=== PATIENT | male | born 2000 | race Caucasian/White ===

== ENCOUNTER 2024-05-14 19:45 | Emergency (ER) | payer BC, SELFPAY ==
--- NOTE | ~2024-05-14 | CT_ITS ---
History: Paresthesias PROCEDURE: CT head without contrast. COMPARISON: None TECHNIQUE: Axial imaging of the head performed from the skull base to the vertex without IV contrast. Sagittal a nd coronal reformations obtained. DLP: 681 mGy-cm FINDINGS: The ventricles are normal in size, shape and position. There is no mass, mass effect or midline shift. There is no abnormal extra-axial fluid collection or intracranial hemorrhage. Visualized paranasal sinuses are clear. The mastoid air cells are well aerated. No acute displaced fractures within the overlying cranium. Impression: No acute intracranial hemorrhage or suspicious mass effect. Reviewed, dictated and finalized at location A. [employer] SUPERVISOR Impression: No acute intracranial hemorrhage or suspicious mass effect.
--- NOTE | ~2024-05-14 | CT_ITS ---
History: Paresthesias PROCEDURE: CT cervical spine without intravenous contrast. COMPARISON: None TECHNIQUE: Multiple contiguous axial images of the cervical spine were performed without the administration of i ntravenous contrast. DLP: 522 mGy-cm FINDINGS: Straightening and slight reversal of the normal curvature of the cervical spine is identified, likely muscular in origin. No acute fractures are present. The bilateral lung apices are unremarkable. No soft tissue abnormality is present. The airway is unremarkable. Impression: Straightening and slight reversal of the normal curvature of the cervical spine, likely muscular in o rigin. No acute fracture. Reviewed, dictated and finalized at location [facility] Impression: Straightening and slight reversal of the normal curvature of the cervical spine , likely muscular in origin. No acute fracture.
--- NOTE | ~2024-05-14 | XR_ITS ---
HISTORY: Paresthesias COMPARISON: None TECHNIQUE: 4 views of the left elbow were performed. FINDINGS: No acute fracture is identified. No elevation of the anterior or posterior fat pads are identified to suggest a supracondylar fracture . Overlying soft tissues are unremarkable. Bone mineralization is age-appropriate. IMPRESSION: No acute fracture or dislocation, as detailed above. Reviewed, dictated and finalized at location A. UAL ASSISTANT
[2024-05-14 19:47] VITALS: BP 142/84; PULSE 95; RESP 18; TEMP 36.6; O2SAT 99
--- NOTE | 2024-05-14 21:13 | ED_ITS ---
HPI - General Adult General Chief complaint: Unspecified Stated complaint: Numbness/tingling in L arm x 3-4 days Time Seen by Provider: 05/14/24 20:45 Source: patient Mode of arrival: ambulatory Limitations: no limitations History of Present Illness HPI narrative: This is a 23-year-old male that presents to the emergency department for paresthesias in his left arm. Ongoing over the last 3 days. No recent injury or trauma. Reports he feels tingling from his elbow down into his hand. No other focal numbness or weakness. Related Data Allergies Allergy/AdvReac Type Severity Reaction Status Date / Time No Known Allergies Allergy Verified 05/14/24 19:46 Review of Systems Review of Systems: CONSTITUTIONAL: Denies fever EYES: Denies visual changes GASTROINTESTINAL: Denies vomiting MUSCULOSKELETAL: Denies back pain, joint pain, or myalgia. NEUROLOGIC: Denies headache, or weakness. All systems reviewed & are unremarkable except as noted in HPI and below PMFSH Past Medical History Medical History (Updated 05/15/24 @ 00:00 by Deisi Jenkins) History of anxiety Social History Social History (Updated 05/14/24 @ 21:15 by Zora Law PA-C) Substance use: never Exam Narrative: GENERAL: Well-appearing, well-nourished, and in no acute distress. HEAD: Normocephalic, atraumatic. EYES: PERRLA and EOMI. ENT: Nares clear, no rhinorrhea or epistaxis. Mucous membranes moist. Oropharynx without tonsillar hypertrophy exudate or other lesions. Bilateral TMs pearly hrenandez non-bulging NECK: Supple. No adenopathy or masses. CHEST: Clear to auscultation. No respiratory distress. No wheezes rales or rhonchi HEART: Regular rate and rhythm. No murmur heard. Normal peripheral pulses. EXTREMITIES: Normal range of motion. No edema or erythema. Strength equal in toan ateral upper and lower extremities (5/5) SKIN: Warm, dry, no rash. NEURO: No focal deficits. Alert and oriented x3. Cranial nerves 2-12 grossly intact PSYCH: Normal mood and affect Course Course Emergency Course: Patient and family agree with plan of care Vital Signs Vital signs: Vital Signs Temperature 98 F 05/14/24 19:47 Pulse Rate 95 05/14/24 19:47 Respiratory Rate 18 05/14/24 19:47 Blood Pressure 142/84 H 05/14/24 19:47 Pulse Oximetry 99 05/14/24 19:47 Temperature 98 F 05/14/24 19:47 Pulse Rate 95 05/14/24 19:47 Respiratory Rate 18 05/14/24 19:47 Blood Pressure 142/84 H 05/14/24 19:47 Pulse Oximetry 99 05/14/24 19:47 Medical Decision Making MDM Narrative Medical decision making narrative: Patient presents to the emergency department for left arm paresthesias. Ongoing over the last couple of days. No recent injuries or trauma. No focal deficits noted on exam. CBC and metabolic panel without concerning findings. CT scan of the brain and neck are without acute findings. Left elbow x-ray without acute osseous abnormalities. Patient and family agree with plan of care. Instructed to have close follow-up with his primary provider for further evaluation. He was given warnings to return to the ER Vital Signs Vital Signs: Vital Signs Temperature 98 F 05/14/24 19:47 Pulse Rate 95 05/14/24 19:47 Respiratory Rate 18 05/14/24 19:47 Blood Pressure 142/84 H 05/14/24 19:47 Pulse Oximetry 99 05/14/24 19:47 Temperature 98 F 05/14/24 19:47 Pulse Rate 95 05/14/24 19:47 Respiratory Rate 18 05/14/24 19:47 Blood Pressure 142/84 H 05/14/24 19:47 Pulse Oximetry 99 05/14/24 19:47 Lab Data Lab results reviewed: Yes I reviewed the patient's lab results. 05/14/24 21:37 05/14/24 21:37 Labs: Lab Results 05/14/24 Range/Units 21:37 WBC 8.4 (4.5-10.0) K/mm3 RBC 4.94 (4.6-6.20) M/mm3 Hgb 15.2 (14.0-18.0) g/dL Hct 42.2 (42.0-52.0) % MCV 85.4 (80-100) fl MCH 30.8 (26-34) pg MCHC 36.0 (32-36) g/dl RDW 12.1 (11.5-14.5) % Plt Count 241 (150-375) k/mm3 MPV 8.9 (7.4-10.4) fl Immature Gran % (Auto) 0.2 (0-0.5) % Neut % (Auto) 60.3 (45.5-73.1) % Lymph % (Auto) 30.8 (18.3-44.2) % [place] % (Auto) 6.8 (2.6-8.5) % Eos % (Auto) 1.5 (0-4.4) % Baso % (Auto) 0.4 (0.2-1.2) % Lymph # (Auto) 2.60 (0.9-3.2) K/mm3 [place] # (Auto) 0.6 (0.1-0.6) K/mm3 Eos # (Auto) 0.1 (0-0.3) K/mm3 Baso # (Auto) 0.0 (0.0-0.1) K/mm3 Abs Immat Gran (auto) 0.02 (0.00-0.031) K/mm3 Absolute Neuts (auto) 5.1 (1.3-6.7) K/mm3 Absolute Nucleated RBC 0.000 (0.0-0.012) K/mm3 Nucleated RBC % 0.0 (0.0-0.2) % Sodium 140 (137-145) mmol/L Potassium 3.7 (3.4-5.0) mmol/L Chloride 99 (98-107) mmol/L Carbon Dioxide 30 (22-30) mmol/L Anion Gap 11 (4-12) mmol/L BUN 17 (9-20) mg/dL Creatinine 0.80 (0.7-1.3) mg/dL Estim Creat Clear Calc 150 ml/min Estimated GFR > 60 (59 - ) Glucose 91 (65-110) mg/dL Calcium 9.1 (8.4-10.2) mg/dL Magnesium 1.9 (1.6-2.3) mg/dL Total Bilirubin 0.5 (0.2-1.3) mg/dL AST 32 (17-59) U/L ALT 33 (6-50) U/L Alkaline Phosphatase 126 (38-126) U/L Total Protein 8.0 (6.3-8.2) g/dL Albumin 4.7 (3.5-5.1) g/dL Vitamin B12 Pending Folate 13.4 (2.76->20) ng/mL Imaging Data Radiologist's impression: ITS Impressions Head CT 05/14/24 22:36 Impression: No acute intracranial hemorrhage or suspicious mass effect. Cervical Spine CT 05/14/24 22:37 Impression: Straightening and slight reversal of the normal curvature of the cervical spine, likely muscular in origin. No acute fracture. Elbow X-Ray 05/14/24 22:41 IMPRESSION: No acute fracture or dislocation, as detailed above. Critical Care Time Critical Care Time Critical Care Time: No Discharge Plan Discharge Clinical Impression: Paresthesia Patient Disposition: Home, Self-Care Condition: Stable Instructions: Paresthesia (ED) Additional Instructions: Return to the emergency department if you experience fever, chest pain, shortness of breath, abdominal pain with nausea and vomiting, sudden onset weakness, numbness, or any other symptoms that are concerning to you. Follow up with your primary care doctor Follow-up/Referrals: PHYSICIAN NOT ON STAFF,NONSTAFF [Non-Staff] -
[2024-05-14 21:45] LABS: Basophils Percent Auto 0.4 % (0.2-1.2); Eosinophils Absolute Auto 0.1 K/mm3 (0-0.3); Eosinophils Percent Auto 1.5 % (0-4.4); Hematocrit 42.2 % (42.0-52.0); Hemoglobin 15.2 g/dL (14.0-18.0); Immature Granulocyte Absolute 0.02 K/mm3 (0.00-0.031); Immature Granulocyte Percent A 0.2 % (0-0.5); Lymphocytes Percent Auto 30.8 % (18.3-44.2); Mean Corpuscular Hemoglobin 30.8 pg (26-34); Mean Corpuscular Volume 85.4 fl (80-100); Mean Platelet Volume 8.9 fl (7.4-10.4); Monocytes Absolute Auto 0.6 K/mm3 (0.1-0.6); Monocytes Percent Auto 6.8 % (2.6-8.5); Neutrophils Absolute Auto 5.1 K/mm3 (1.3-6.7); Neutrophils Percent Auto 60.3 % (45.5-73.1); Platelet Count Result 241 k/mm3 (150-375); Red Blood Count 4.94 M/mm3 (4.6-6.20); Red Cell Distribution Width 12.1 % (11.5-14.5); White Blood Count 8.4 K/mm3 (4.5-10.0)
[2024-05-14 22:02] LABS: Alanine Aminotransferase 33 U/L (6-50); Albumin Level 4.7 g/dL (3.5-5.1); Alkaline Phosphatase 126 U/L (38-126); Anion Gap 11 mmol/L (4-12); Aspartate Amino Transferase 32 U/L (17-59); Bilirubin,Total 0.5 mg/dL (0.2-1.3); Blood Urea Nitrogen 17 mg/dL (9-20); Calcium 9.1 mg/dL (8.4-10.2); Carbon Dioxide 30 mmol/L (22-30); Chloride 99 mmol/L (98-107); Estimated CRCL calculation 150 ml/min; Estimated Glomerular Filt Rate > 60; Glucose 91 mg/dL (65-110); Magnesium 1.9 mg/dL (1.6-2.3); Potassium 3.7 mmol/L (3.4-5.0); Sodium 140 mmol/L (137-145)
[2024-05-14 23:05] LABS: Folic Acid 13.4 ng/mL (2.76->20)
== END 2024-05-14 23:32 | disposition home or self-care (01) ==
PROVIDERS: Emergency Provider Physician Assistant
DX: R20.2 Paresthesia of skin (principal)
CPT/HCPCS: 36415; 70450; 72125; 73080; 80053; 82607; 82746; 83735; 85025; 99284

== ENCOUNTER 2025-01-23 22:48 | Emergency (ER) | payer BC, SELFPAY ==
--- NOTE | ~2025-01-23 | CT_ITS ---
Non-contrast Head CT History: Head injury COMPARISON: 724 Technique: Axial non-contrast imaging of the brain was performed. Dose reduction technique was used on this scan by utilizing automated exposure control and iterative reconstruction technique. The dose -length product (DLP) was 681.00 mGy-cm. Findings: There is no evidence of intracranial hemorrhage, mass lesion, or acute infarct. Brain par enchyma appears normal. The ventricles and subarachnoid spaces are normal in size. The calvarium ap pears normal. The visualized paranasal sinuses and mastoid air cells are clear. Impression: No significant abnormality seen. Reviewed, dictated and finalized at [facility]. Impression: No significant abnormality seen.
--- OUTSIDE RECORDS SUMMARY | 2025-01-23 22:50 | XMS_ITS | Clinical Summary ---
Author Organization [facility] Address [address] [place] [address] Care Team Providers Care [employer] Wafers Tester Name Role Phone Chauncey Strauss MD Primary Care Provider Source Comments [facility],non-owned Affiliates and Associated Physician Practices is amultiple site organization consisting of ambulatory clinics and hospital sitesin [place], [place], [place] and [place]. This disclosure is being madepursuant to the Care Everywhere program and may not contain all information available regarding this patient. Last updated 18.[employer] [facility] Allergies No known active allergies Medications * This document contains information received from the source organization and may not represent a complete record from that organization. * Be aware that medications may not be up to date on this document. Alwaysverify current medications with the patient. traZODone (Desyrel) 50 MG tabletIndicatio ns:Psychophysio logical insomnia Take 1 (one) tablet by mouth at bedtime 30 tablet 4 Active Additional Information Patient not taking.Reported on 08/13/2024 busPIRone (Buspar) 10 MG tabletIndicatio ns:Generalized anxiety disorder Take 1 (one) tablet by mouth 2 times daily 180 tablet 3 4 Active Active Problems Problem Noted Date Diagnosed Date Lipid screening 02/10/2024 Class 2 obesity due to exces s calories without serious comorbidity with body mass index (BMI) of 36.0 to 36.9 in adult 08/22/2022 Generalized anxiety disorder 09/06/2021 IgA nephropathy 08/04/2021 Overview (08/04/2021): Diagnosis age 13-14, around 2014 Resolved Problems Problem Noted Date Diagnosed Date Resolved Date Sciatica of left side 10/23/20182021 Hamstring tightness of both lower extremities 09/18/19 19 08/04/2021 Left hip pain 09/17/2018 08/04/2021 Quadricep tightness 09/17/2018 08/04/19 22 Hematuria, unspecified 05/12/201508/04 Immunizations Immunization Administration Dates Next Due LEIGH VAZQUEZ PRIMARY 18+YR 09/09/2020 DTaP VACCINE IM (6wk-6yrs) 01/27/2002 HEP B VACCINE 2001 HIB Hep B 01/27/2002 Hep B, Adjuvanted 2001 INFLUENZA VACCINE, CELL CULT URE, QUADR. (FLUCELVAX QUADRIVALENT; 6MO+) (CCIIV4) 03/21/2022 INFLUENZA VACCINE, QUADR. (F LUZONE; FLULAVAL; FLUARIX; AFLURIA QUADRIVALENT; 6MO+), 0.5 ML (IIV4) 09/16/2019 PNEUMOCOCCAL PCV7 CONJ, PEDS 01/27/2002 POLIO IPV 01/27/2002 Family History Medical History Relation Name Comments Diabetes - Type 2 Father Sharan BrayJr. Hypertension Father Sharan BrayJr. Diabetes - Type 2 Maternal Grandmother Avani Hypertension Maternal Grandmother Avani Hypertension Mother Rubina Bray Obesity Mother Rubina Bray Cancer - Lung Paternal Grandmother Relation Name Status Comments Father Sharan BrayJr. Alive Maternal Grandfather Wei Maternal Grandmother Avani Alive Mother Rubina Bray Alive Paternal Grandfather Sharan Bray Paternal Grandmother Sister Chrissy Alive Social History Tobacco Use Types Packs/Day Years Used Date Smoking Tobacco: Never Smokeless Tobacco: Never Tobacco Cessation:Counseling Given: Yes Alcohol Use Standard Drinks/Week Comments Never 0 (1 standard drink = 0.6 oz pur e alcohol) AUDIT-C Answer Date Recorded Q1: How often do you have a drink containing alcohol? Never 05/15/2024 Q2: How many drinks containi ng alcohol do you have on a typical day when you are drinking? Patient does not drink Q3: How often do you have si x or more drinks on one occasion? 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 Gender Identity Not on file Sexual Orientation Not on file Occupation Industry Job Start Date Job End Date Student Not on file Not on file Not on file Last Filed Vital Signs Vital Sign Reading Time Taken Comments Blood Pressure 118/74 08/13/2024 8:06 AM PLASTERER FOREMAN Pulse 81 08/13/2024 8:06 AM PLASTERER FOREMAN Temperature 36.1 C (97 F) 08/13/2024 8:06 AM PLASTERER FOREMAN Respiratory Rate 18 02/13/2023 2:38 PM CDT Oxygen Saturation 96% 08/13/2024 8:06 AM PLASTERER FOREMAN Inhaled Oxygen Concentration - - Weight 103.7 kg (228 lb 9.6 oz) 08/13/2024 8:06 AM PLASTERER FOREMAN Height 172.7 cm (5' 7.99) 08/13/2024 8:06 AM CS T Body Mass Index 34.77 08/13/2024 8:06 AM PLASTERER FOREMAN Plan of Treatment Upcoming Encounters Date Type Department Care Team (Late st Contact Info) Description 02/11/2025 10:00 AM CDT Office Visit [facility] - Internal Medicine [address] [place] [phone] [place] [address] [place] [address] [place] [phone] Health Maintenance Due Date Last Done Comments HEPATITIS B VACCINE (3 of 3 - 3-dose series) 05/25/2002 01/27/2002, 2001, 2001 HIV SCREENING 2016 HPV VACCINE (1 - Male 3-dose series) 2016 MENINGOCOCCAL (Group B) VACCINE SHARED DECISION-MAKING (1 of 2 - Standard) 2017 HEPATITIS C SCREENING 11/18/2019 DTAP/TDAP/TD VACCINES (2 - Tdap) 2020 01/27/2002 COVID-19 VACCINE (2 - season) 2024 09/09/2020 INFLUENZA VACCINE (#1) 2025 03/21/2022, 2019 ZOSTER VACCINE (1 of 2) 11/23/2051 HIB VACCINE Aged Out 01/27/2002 No longer eligi ble based on patient's age to complete this topic PNEUMOCOCCAL VACCINE Aged Out 01/27/2002 No long er eligible based on patient's age to complete this topic DEPRESSION SCREENING Completed 08/13/2024, 08/27/2023, 08/22/2022, Additional history exists MENINGOCOCCAL GROUPS A/C/Y/W VACCINE Aged Out No longer eligible based on patient's age to complete this topic Insurance [facility] Care Teams Semiconductor Wafers Tester Relationship Specialty Start Date End Date Chauncey Strauss MD [address] [place] [phone] PCP - General Internal Medicine 08/04/21
--- OUTSIDE RECORDS SUMMARY | 2025-01-23 22:50 | XMS_ITS | Continuity of Care Document ---
Author Organization [facility] Address [address] [place] [address] [address] [place] [address] Phone Care Team Providers Care Mud Grinder Name Role Phone Muehl ARNOL REEDTCarlos Alberto Unavailable Unavailable Procedures Procedure Date Therapeutic Activities Neuromuscular Re-Ed Therapeutic Exercise Manual Therapy Therapeutic Activities Neuromuscular Re-Ed Therapeutic Exercise Hot or Cold Pack Therapeutic Activities Neuromuscular Re-Ed Therapeutic Exercise Hot or Cold Pack Manual Therapy Therapeutic Activities Neuromuscular Re-Ed Therapeutic Exercise Manual Therapy Hot or Cold Pack Therapeutic Activities Neuromuscular Re-Ed Manual Therapy Therapeutic Exercise Therapeutic Activities Neuromuscular Re-Ed Hot or Cold Pack Manual Therapy Therapeutic Exercise Therapeutic Activities Manual Therapy Neuromuscular Re-Ed Hot or Cold Pack Therapeutic Exercise Neuromuscular Re-Ed Manual Therapy Hot or Cold Pack Therapeutic Exercise Therapeutic Activities Neuromuscular Re-Ed Manual Therapy Hot or Cold Pack Therapeutic Exercise Therapeutic Activities Neuromuscular Re-Ed Hot or Cold Pack PT Re-evaluation Therapeutic Exercise Neuromuscular Re-Ed Manual Therapy Hot or Cold Pack PT Re-evaluation Therapeutic Exercise Therapeutic Activities Neuromuscular Re-Ed Manual Therapy Hot or Cold Pack Therapeutic Exercise Therapeutic Activities Neuromuscular Re-Ed Manual Therapy Therapeutic Exercise Therapeutic Activities Neuromuscular Re-Ed Manual Therapy Therapeutic Exercise Therapeutic Activities Neuromuscular Re-Ed Manual Therapy Hot or Cold Pack Therapeutic Exercise Therapeutic Activities Neuromuscular Re-Ed Manual Therapy Hot or Cold Pack PT Re-evaluation Therapeutic Exercise Therapeutic Activities Neuromuscular Re-Ed Manual Therapy Hot or Cold Pack Therapeutic Exercise Therapeutic Activities Neuromuscular Re-Ed Manual Therapy Hot or Cold Pack Therapeutic Exercise Therapeutic Activities Neuromuscular Re-Ed Manual Therapy Hot or Cold Pack Electrical Stimulation Therapeutic Exercise Therapeutic Activities Neuromuscular Re-Ed Manual Therapy Hot or Cold Pack Therapeutic Exercise Therapeutic Activities Neuromuscular Re-Ed Hot or Cold Pack PT Evaluation Moderate Complexity Therapeutic Exercise Neuromuscular Re-Ed Therapeutic Exercise Therapeutic Activities Neuromuscular Re-Ed Manual Therapy PT Evaluation Moderate Complexity Therapeutic Exercise Neuromuscular Re-Ed Advance Directives Directive Yes / No Effective Date File Name No Information Encounters Encounter Description Practice Location Reason(s) For Visit Diagnoses Date Provider Providers Copied on Encounter [address], [id number], tel:[phone] [facility] No Information Sep-2 9 Muehl Carlos Alberto. [address] [place] [address], [address], [place], [facility], . tel:[phone] Referring Provider: Jenn [address], [place], [address]. tel:[phone], [id number], tel:[phone] [facility] No Information Sep-2 9 Muehl Carlos Alberto. [address] [place] [address], [address], [place], [facility], . tel:[phone] Referring Provider: Jenn [address], [place], [address]. tel:[phone] [facility] [address] [place] [address], [id number], tel:[phone] [facility] No Information Sep- 9 Jonathan Jasso Referring Provider: Jenn [address], [place], [address]. tel:[phone], [id number], tel:[phone] [facility] No Information Sep- 6 9 Muehl Carlos Alberto. [address] [facility], [address], [place], [place], [facility], . tel:[phone] Referring Provider: Dalila Baron [address] , [place], [address]. tel:[phone], [id number], tel:[phone] [facility] No Information Sep-0 9-201 9 Muehl Carlos Alberto. [address] [place] [address], [address], [place], [place], [facility], . tel:[phone] Referring Provider: Dalila Baron, [address] , [place], [address]. tel:[phone], [id number], tel:[phone] [facility] No Information Mar-0 5-201 9 [place] Andrea. . Referring Provider: Олег [address] [place], [address]. tel:[phone], [id number], tel:[phone] [facility] No Information 2 8 9 Muehl Carlos Alberto. [address] [place] [address], [address], [place], [place], [facility], . tel:[phone] Referring Provider: Олег [address] [place], [address]. tel:[phone], [id number], tel:[phone] [facility] No Information 2 9 Muehl Carlos Alberto. [address] [place] [address], [address], [place] [address], . tel:[phone] Referring Provider: Dalila Baron [address] [place], [address]. tel:[phone], [id number], [place] tel:[phone] [facility] No Information 9 [facility] Andrea. . Referring Provider: Jenn [place], [address]. tel:[phone] [facility] [address], [id number], tel:[phone] [facility] No Information 9 Tony Mendez. . Referring Provider: [address] [place], [address]. tel:[phone] [place] [address], [id number], tel:[phone] [facility] No Information 9 Muehl Carlos Alberto. [address] [place] [address], [address], [place], [facility], [place]. tel:[phone] Referring Provider: Jenn [place], [address]. tel:[phone] [facility] [address] [place] [address], [id number], tel:[phone] [facility] No Information 9 Muehl Carlos Alberto. [address] [place] [address], [address], [place], [address], [place]. tel:[phone] Referring Provider: Jenn [place], [address]. tel:[phone] [facility] [address] [place] [address], [id number], [place] tel:[phone] [facility] No Information 9 Muehl Carlos Alberto. [address] [place] [address], [address], [place], [address], [place]. tel:[phone] Referring Provider: [address] [place], [address]. tel:[phone] [facility] [address] [facility] [address], [place], [place], [id number], [place] tel:[phone] [facility] Lumbago with sciatica, left sideStiffness of unspecified joint, not elsewhere classifiedMus quang weakness (generalized) Segmental and somatic dysfunction of lumbar region Dec- 7 9 Muehl Carlos Alberto. [address] [facility], [address], [place], [address], [place]. tel:[phone] Referring Provider: Jenn [place], [address]. tel:[phone] [facility] [address] [facility] [address], [place], [place], [id number], [place] tel:[phone] [facility] Lumbago with sciatica, left sideStiffness of unspecified joint, not elsewhere classifiedMus quang weakness (generalized) Segmental and somatic dysfunction of lumbar region Dec-2 9 Muehl Carlos Alberto. [address] [place] [address], [address], [place], [address], [place]. tel:[phone] Referring Provider: Jenn [place], [address]. tel:[phone] [facility] [address] [place] [address], [place], [place], [id number], [place] tel:[phone] [facility] Lumbago with sciatica, left sideStiffness of unspecified joint, not elsewhere classifiedMus quang weakness (generalized) Segmental and somatic dysfunction of lumbar region Dec-2 0 9 Muehl Carlos Alberto. [address] [facility], [address], [place], [address], [place]. tel:[phone] Referring Provider: Jenn [place], [address]. tel:[phone] [facility] [address] [facility], [place], [place], [id number], [place] tel:[phone] [facility] Lumbago with sciatica, left sideStiffness of unspecified joint, not elsewhere classifiedMus quang weakness (generalized) Segmental and somatic dysfunction of lumbar region 9 Muehl Carlos Alberto. [address] [facility], [address], [place], [facility], [place]. tel:[phone] Referring Provider: Олег [address] [place], [address]. tel:[phone] [facility] [address] [place] [address], [place], [place], [id number], [place] tel:[phone] [facility] Lumbago with sciatica, left sideStiffness of unspecified joint, not elsewhere classifiedMus quang weakness (generalized) Segmental and somatic dysfunction of lumbar region 9 Muehl Carlos Alberto. [address] [place] [address], [address], [place], [address], [place]. tel:[phone] Referring Provider: Олег [address] [place], [address]. tel:[phone] [facility] [address] [facility], [place], [place], [id number], [place] tel:[phone] [facility] Lumbago with sciatica, left sideStiffness of unspecified joint, not elsewhere classifiedMus quang weakness (generalized) Segmental and somatic dysfunction of lumbar region 9 [place] Nicolasa. . Referring Provider: Dalila Baron, [address] [place], [address]. tel:[phone] [facility] [facility], [place], [place], [id number], [place] tel:[phone] [facility] Lumbago with sciatica, left sideStiffness of unspecified joint, not elsewhere classifiedMus quang weakness (generalized) Segmental and somatic dysfunction of lumbar region 9 Muehl Carlos Alberto. [address] [facility], [address], [place], [address], [place]. tel:[phone] Referring Provider: Dalila Baron, [address] , [place], [address]. tel:[phone] [facility] [place] [address], [place], [place], [id number], [place] tel:[phone] [facility] Lumbago with sciatica, left sideStiffness of unspecified joint, not elsewhere classifiedMus quang weakness (generalized) Segmental and somatic dysfunction of lumbar region 9 Muehl Carlos Alberto. [address] [facility], [address], [place], [address], [place]. tel:[phone] Referring Provider: Dalila Baron, [address] , [place], [address]. tel:[phone] [facility] [place] [address], [place], [place], [id number], [place] tel:[phone] [facility] Lumbago with sciatica, left sideStiffness of unspecified joint, not elsewhere classifiedMus quang weakness (generalized) Segmental and somatic dysfunction of lumbar region 9 Muehl Carlos Alberto. [address] [facility], [address], [place], [address], [place]. tel:[phone] Referring Provider: Dalila Baron, [address] [place], [address]. tel:[phone] [facility], [id number], [place] tel:[phone] [facility] Pain in left legPain in left hipLumbago with sciatica, left sideMuscle weakness (generalized) Other specified disorders of muscle 9 Muehl Carlos Alberto. [address] [facility], [address], [place], [address], [place]. tel:[phone] Referring Provider: Franny Garcia, [address] [place] [address], [address]. tel:[phone] [facility] [place] [address], [place], [place], [id number], [place] tel:[phone] [facility] Pain in left legPain in left hipLumbago with sciatica, left sideMuscle weakness (generalized) Other specified disorders of muscle Sep-201 9 Rose Carcamo. [address] [facility], [address], [place], [address], [place]. tel:[phone] Referring Provider: Franny Garcia, [address] [place] [address], [address]. tel:[phone] Family History Family Member Type Diagnosis Age At Onset No Information Payers Payer name Insurance type Covered constitution party ID Authorhugoa gabriela(s) [facility] [id number] Social History Type Description Quantity Date Captured Comments Sex Male Smoking Status No Information Chief Complaint And Reason For Visit No Information Reason For Referral Reason For Referral No Information History Of Present Illness Encounter Date Complaint History Of Prese nt Illness No Information Functional Status Date Functional Assessmen t No Information Instructions Date Instruction Additional Infor mation No Information Assessments Type Assessment Date No Information Patient Care Teams Name Effective Dates (start - stop) Status Members No Information
[2025-01-23 22:51] VITALS: BP 124/90; PULSE 91; RESP 16; TEMP 36.3; O2SAT 98
[2025-01-23 23:39] VITALS: PULSE 95; RESP 24; O2SAT 97
[2025-01-23 23:45] VITALS: PULSE 87; RESP 15; O2SAT 97
--- NOTE | 2025-01-23 23:58 | ED_ITS ---
HPI - Head Injury General Chief complaint: Head Injury <Wes Kingston APRN - Last Filed: 01/24/25 02:06> Stated complaint: hit my head puck to the head <Wes Kingston APRN - Last Filed: 01/24/25 02:06> Time Seen by Provider: 01/23/25 23:47 <Wes Kingston APRN - Last Filed: 01/24/25 02:06> Source: patient, family, EMS and other (Pt has video on phone of incident) <Wes Kingston APRN - Last Filed: 01/24/25 02:06> Mode of arrival: ambulatory <Wes Kingston APRN - Last Filed: 01/24/25 02:06> Limitations: no limitations <Wes Kingston APRN - Last Filed: 01/24/25 02:06> History of Present Illness HPI Narrative: 24 y/o WM in the ED for c/o his head being struck by a hockey puck. Pt states he was playing in a game, hit with a slap shot to the left head and went to the ground. Pt denies LOC, LINDO, vision issue, dizziness, N/V. Endorses large amount of blood initially, controlled w/ direct pressure to the site. Pt denies being on blood thinners and is a relatively healthy 24 y/o. <Wes dyer APRN - Last Filed: 01/24/25 02:06> Related Data Allergies/Adverse reactions: Allergies Allergy/AdvReac Type Severity Reaction Status Date / Time No Known Allergies Allergy Verified 01/23/25 23:08 <Wes Kingston APRN - Last Filed: 01/24/25 02:06> Review of Systems Review of Systems: All systems reviewed & are unremarkable except as noted in HPI and below <Wes Kingston APRN - Last Filed: 01/24/25 02:06> PMFSH Past Medical History Medical History: Medical History History of anxiety <Wes Kingston APRN - Last Filed: 01/24/25 02:06> Social History Social History: Social History Substance use: never <Wes Kingston APRN - Last Filed: 01/24/25 02:06> Exam Const: General: healthy appearing, no acute distress and alert <Wes Kingston APRN - Last Filed: 01/24/25 02:06> Nutritional Appearance: well nourished <Wes Kingston APRN - Last Filed: 01/24/25 02:06> Orientation/consciousness: patient oriented x3 <Wes Kingston APRN - Last Filed: 01/24/25 02:06> Limitations: no limitations <Wes Kingston APRN - Last Filed: 01/24/25 02:06> HENMT: Head: hematoma left parietal 3 cm and laceration left parietal 0.25 cm <Wes Kingston APRN - Last Filed: 01/24/25 02:06> Ears: external ears normal <Wes Kingston APRN - Last Filed: 01/24/25 02:06> Face/Nose/Sinus: Normal external nose present <Wes Kingston APRN - Last Filed: 01/24/25 02:06> Face and sinus: normal facial exam <Wes Kingston APRN - Last Filed: 01/24/25 02:06> Eyes: Pupils: Equal, round and reactive pupils present <Wes Kingston APRN - Last Filed: 01/24/25 02:06> EOM: EOMs intact bilaterally <Wes Kingston APRN - Last Filed: 0 01/24/25 02:06> Neck: Neck: normal visual inspection <Wes Kingston APRN - Last Filed: 01/24/25 02:06> Chest: Chest palpation & inspection: normal inspection of the chest <Wes Kingston APRN - Last Filed: 01/24/25 02:06> Resp: Effort & Inspection: normal respiratory effort <Wes Kingston APRN - Last Filed: 01/24/25 02:06> Auscultation: clear to auscultation bilaterally <Wes Kingston APRN - Last Filed: 01/24/25 02:06> Skin: General skin exam: normal color <Wes Kingston, RETAIL LOSS PREVENTION OFFICER - Last Filed: 01/24/25 02:06> Rashes: no rashes <Wes LisaLouisa Kingston APRN - Last Filed: 01/24/25 02:06> Neuro: General: patient oriented x3 and moves all extremities <Wes GonzalezLouisa DeeMICHAEL yder - Last Filed: 01/24/25 02:06> Cranial nerves: Yes CN's II-XII intact bilaterally <Wes LisaLouisa Kingston APRN - Last Filed: 01/24/25 02:06> Speech: normal speech <Wes LisaLouisa Kingston APRN - Last Filed: 01/24/25 02:06> Gait exam (Neuro): Normal gait present <Wes LisaLouisa Kingston APRN - Last Filed: 01/24/25 02:06> Extrem: General: normal to inspection <Wes LisaLouisa Kingston APRN - Last Filed: 01/24/25 02:06> Psych: Mental Status: mental status grossly normal <Wes LisaLouisa Kingston APRN - Last Filed: 01/24/25 02:06> Affect: normal affect <Wes LisaLouisa Kingston APRN - Last Filed: 01/24/25 02:06> Attitude: cooperative <Wes LisaLouisa Kingston APRN - Last Filed: 01/24/25 02:06> Course PHYSICAL SCIENTIST/PA Physician Supervision This visit was performed by both a physician and an APC. I performed all aspects of the MDM as documented. <Kong Garrett MD - Last Filed: 01/24/25 02:28> Vital Signs Vital signs: Vital Signs Temperature 36.3 C L 01/23/25 22:51 Pulse Rate 91 01/23/25 22:51 Respiratory Rate 16 01/23/25 22:51 Blood Pressure 124/90 01/23/25 22:51 Pulse Oximetry 98 01/23/25 22:51 Oxygen Delivery Room Air 01/23/25 22:51 Temperature 36.3 C L 01/23/25 22:51 Pulse Rate 86 01/24/25 00:45 Respiratory Rate 19 01/24/25 00:45 Blood Pressure 124/90 01/23/25 22:51 Pulse Oximetry 98 01/24/25 00:45 Oxygen Delivery Room Air 01/23/25 22:51 <eWs Kingston APRN - Last Filed: 01/24/25 02:06> Vital Signs Temperature 36.3 C L 01/23/25 22:51 Pulse Rate 91 01/23/25 22:51 Respiratory Rate 16 01/23/25 22:51 Blood Pressure 124/90 01/23/25 22:51 Pulse Oximetry 98 01/23/25 22:51 Oxygen Delivery Room Air 01/23/25 22:51 Temperature 36.3 C L 01/23/25 22:51 Pulse Rate 86 01/24/25 00:45 Respiratory Rate 19 01/24/25 00:45 Blood Pressure 124/90 01/23/25 22:51 Pulse Oximetry 98 01/24/25 00:45 Oxygen Delivery Room Air 01/23/25 22:51 <Kong Garrett MD - Last Filed: 01/24/25 02:28> MDM - Head Injury MDM Narrative Medical decision making narrative: Patient showed me a video of the incident leading to the injury. Patient was wearing a helmet and it subsequently broke after being struck by the puck. CT head obtained awaiting results. Small laceration cleaned with saline and closed with Dermabond. <Wes Kingston APRN - Last Filed: 01/24/25 02:06> Patient showed me a video of the incident leading to the injury. Patient was wearing a helmet and it subsequently broke after being struck by the puck. CT head obtained awaiting results. Small laceration cleaned with saline and closed with Dermabond. CT shows no acute intracranial abnormalities. Soft tissue swelling of the left scalp consistent with injury site. Patient is safe for discharge home at this time with return precautions. <Kong Garrett MD - Last Filed: 01/24/25 02:28> Differential Diagnosis Differential diagnosis: Likely concussion without loss of consciousness, epidural hematoma, closed head injury, subarachnoid hematoma, postconcussion syndrome, subdural hematoma and concussion with loss of consciousness <Wes Kingston APRN - Last Filed: 01/24/25 02:06> Medical Records Attestation: I reviewed the patient's medical records. <Wes Kingston APRN - Last Filed: 01/24/25 02:06> Discharge Plan Discharge Clinical Impression: Closed head injury Qualifiers: Encounter type: initial encounter Qualified Code(s): S09.90XA - Unspecified injury of head, initial encounter <Wes Kingston APRN - Last Filed: 01/24/25 02:06> Patient Disposition: Still a Patient <Wes Kingston APRN - Last Filed: 01/24/25 02:06> Condition: Stable <Wes Kingston APRN - Last Filed: 01/24/25 02:06> Instructions: Concussion (ED), Head Injury (ED), Post Concussion Syndrome (ED) <Wes Kingston APRN - Last Filed: 01/24/25 02:06> Patient Language: Argentine <Wes Kingston APRN - Last Filed: 01/24/25 02:06> Follow-up/Referrals: UNKNOWN,DOCTOR [Non-Staff] - <Wes Kingston APRN - Last Filed: 01/24/25 02:06> Time of Disposition: 02:28 <Wes Kingston APRN - Last Filed: 01/24/25 02:06> 02:28 <Kong Garrett MD - Last Filed: 01/24/25 02:28>
[2025-01-24] VITALS: PULSE 87; RESP 22; O2SAT 97
--- OUTSIDE RECORDS SUMMARY | 2025-01-24 00:10 | XMS_ITS | Clinical Summary ---
Author Organization [facility] Address [address] [place] [address] Care Team Providers Care Pathology Supervisor Name Role Phone Chauncey Strauss MD Primary Care Provider [phone] Source Comments [facility],non-owned Affiliates and Associated Physician Practices is amultiple site organization consisting of ambulatory clinics and hospital sitesin [place], [place], [place] and [place]. This disclosure is being madepursuant to the Care Everywhere program and may not contain all information available regarding this patient. 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 Gender Identity Not on file Sexual Orientation Not on file Occupation Industry Job Start Date Job End Date Student Not on file Not on file Not on file Last Filed Vital Signs Vital Sign Reading Time Taken Comments Blood Pressure 118/74 08/13/2024 8:06 AM GENERAL UTILITY MACHINE OPERATOR Pulse 81 08/13/2024 8:06 AM GENERAL UTILITY MACHINE OPERATOR Temperature 36.1 C (97 F) 08/13/2024 8:06 AM GENERAL UTILITY MACHINE OPERATOR Respiratory Rate 18 02/13/2023 2:38 PM CDT Oxygen Saturation 96% 08/13/2024 8:06 AM GENERAL UTILITY MACHINE OPERATOR Inhaled Oxygen Concentration - - Weight 103.7 kg (228 lb 9.6 oz) 08/13/2024 8:06 AM GENERAL UTILITY MACHINE OPERATOR Height 172.7 cm (5' 7.99) 08/13/2024 8:06 AM CS T Body Mass Index 34.77 08/13/2024 8:06 AM GENERAL UTILITY MACHINE OPERATOR Plan of Treatment Upcoming Encounters Date Type Department Care Team (Late st Contact Info) Description 02/11/2025 10:00 AM CDT Office Visit [facility] - Internal Medicine [address] [facility] [address] [place] [id number] [place] [address] [place] [address] [place] [id number] Health Maintenance Due Date Last Done [...] patient's age to complete this topic Insurance [facility] Care Teams Pathology Supervisor Relationship Specialty Start Date End Date Chauncey Strauss MD [address] [place] [id number] PCP - General Internal Medicine 08/04/21
--- OUTSIDE RECORDS SUMMARY | 2025-01-24 00:10 | XMS_ITS | Continuity of Care Document ---
Author Organization [facility] Address [address] [place] [address] [address] [place] [address] Phone Care Team Providers Care Booth Cleaner Name Role Phone Munessa AMBROSE CMPTCarlos Alberto Unavailable Unavailable Procedures Procedure Date Therapeutic Activities Neuromuscular Re-Ed Therapeutic Exercise Manual Therapy Therapeutic Activities Neuromuscular Re-Ed Hot or Cold Pack Therapeutic Exercise Therapeutic Activities Neuromuscular Re-Ed Therapeutic Exercise Hot or Cold Pack Manual Therapy Therapeutic Activities Neuromuscular Re-Ed Therapeutic Exercise Manual Therapy Hot or Cold Pack Therapeutic Activities Neuromuscular Re-Ed Manual Therapy Therapeutic Exercise Therapeutic Activities Neuromuscular Re-Ed Hot or Cold Pack Manual Therapy Therapeutic Exercise Therapeutic Activities Neuromuscular Re-Ed Manual Therapy Hot or Cold Pack Therapeutic Exercise Neuromuscular Re-Ed Manual Therapy Hot or Cold Pack Therapeutic Exercise Therapeutic Activities Neuromuscular Re-Ed Hot or Cold Pack Manual Therapy Therapeutic Exercise Neuromuscular Re-Ed Therapeutic Activities Hot or Cold Pack PT Re-evaluation Therapeutic Exercise Neuromuscular Re-Ed Manual Therapy Hot or Cold Pack PT Re-evaluation Therapeutic Exercise Neuromuscular Re-Ed Therapeutic Activities Manual Therapy Hot or Cold Pack Therapeutic [...] Diagnoses Date Provider Providers Copied on Encounter [address], [id number], tel:[phone] Mission No Information Sep-2 9 Muehl Carlos Alberto. [address] [place] [address], [address], [place], [facility], . tel:[phone] Referring Provider: [address]Jnn [address], [place], [address]. tel:[phone], [id number], tel:[phone] Mission No Information Sep-2 9 Muehl Carlos Alberto. [address] [place] [address], [address], [place], [facility], . tel:[phone] Referring Provider: Jenn [address], [place], [address]. tel:[phone] [facility] [address] [place] [address], [id number], tel:[phone] Mission No Information Sep- 9 Jonathan Jasso Referring Provider: Jenn [address], [place], [address]. tel:[phone], [id number], tel:[phone] Mission No Information Sep- 6 9 Muehl Carlos Alberto. [address] [facility], [address], [place], [place], [facility], . tel:[phone] Referring Provider: Dalila Baron [address] , [place], [address]. tel:[phone], [id number], tel:[phone] Mission No Information Sep-0 9-201 9 Muehl Carlos Alberto. [address] [place] [address], [address], [place], [place], [facility], . tel:[phone] Referring Provider: Dalila Baron, [address] , [place], [address]. tel:[phone], [id number], tel:[phone] Mission No Information Mar-0 5-201 9 [place] Andrea. . Referring Provider: О[address] [place], [address]. tel:[phone], [id number], tel:[phone] Mission No Information 2 8 9 Muehl Carlos Alberto. [address] [place] [address], [address], [place], [place], [facility], . tel:[phone] Referring Provider: Олег [address] [place], [address]. tel:[phone], [id number], tel:[phone] Mission No Information 2 9 Muehl Carlos Alberto. [address] [place] [address], [address], [place] [address], . tel:[phone] Referring Provider: Dalila Baron [id number] [place], [address]. tel:[phone], [id number], [place] tel:[phone] Mission No Information 9 [facility] Andrea. . Referring Provider: Jenn [place], [address]. tel:[phone] [facility] [address], [id number], tel:[phone] Mission No Information 9 Tony Mendez. . Referring Provider: Jenn [place], [address]. tel:[phone] [place] [address], [id number], tel:[phone] Mission No Information 9 Muehl Carlos Alberto. [address] [place] [address], [address], [place], [place], [facility], [place]. tel:[phone] Referring Provider: Jenn [place], [address]. tel:[phone] [facility] [address] [place] [address], [id number], tel:[phone] Mission No Information 9 Muehl Carlos Alberto. [address] [place] [address], [address], [place], [address], [place]. tel:[phone] Referring Provider: Jenn [place], [address]. tel:[phone] [facility] [address] [place] [address], [id number], [place] tel:[phone] Mission No Information 9 Muehl Carlos Alberto. [address] [place] [address], [address], [place], [address], [place]. tel:[phone] Referring Provider: [address] [place], [address]. tel:[phone] [facility] [address] [facility] [address], [place], [place], [id number], [place] tel:[phone] [facility] Lumbago with sciatica, left sideStiffness of unspecified joint, not elsewhere classifiedMus quang weakness (generalized) Segmental and somatic dysfunction of lumbar region Dec- 7 9 Muehl Carlos Alberto. [address] [facility], [address], [place], [address], [place]. tel:[phone] Referring Provider: Jenn [place], [address]. tel:[phone] [facility] [address] [facility] [address], [place], [place], [id number], [place] tel:[phone] [facility] Lumbago with sciatica, left sideStiffness of unspecified joint, not elsewhere classifiedMus quang weakness (generalized) Segmental and somatic dysfunction of lumbar region Dec-2 9 Muehl Carlos Alberto. [address] [place] [address], [address], [place], [address], [place]. tel:[phone] Referring Provider: [place], [address]. tel:[phone] [facility] [address] [place] [address], [place], [place], [id number], [place] tel:[phone] [facility] Lumbago with sciatica, left sideStiffness of unspecified joint, not elsewhere classifiedMus quang weakness (generalized) Segmental and somatic dysfunction of lumbar region Dec-2 0 9 Muehl Carlos Alberto. [address] [facility], [address], [place], [address], [place]. tel:[phone] Referring Provider: Jenn [place], [address]. tel:[phone] [facility] [address] [facility], [place], [place], [id number], [place] tel:[phone] [facility] Lumbago with sciatica, left sideStiffness of unspecified joint, not elsewhere classifiedMus quang weakness (generalized) Segmental and somatic dysfunction of lumbar region 9 Muehl Carlos Alberto. [address] [facility], [address], [place], [place], [facility], [place]. tel:[phone] Referring Provider: Олег [address] [place], [address]. tel:[phone] [facility] [address] [place] [address], [place], [place], [id number], [place] tel:[phone] [facility] Lumbago with sciatica, left sideStiffness of unspecified joint, not elsewhere classifiedMus quang weakness (generalized) Segmental and somatic dysfunction of lumbar region 9 Muehl Carlos Alberto. [address] [place] [address], [address], [place], [address], [place]. tel:[phone] Referring Provider: Олег [address] [place], [address]. tel:[phone] [facility] [address] [facility], [place], [place], [id number], [place] tel:[phone] [facility] Lumbago with sciatica, left sideStiffness of unspecified joint, not elsewhere classifiedMus quang weakness (generalized) Segmental and somatic dysfunction of lumbar region 9 [place] Nicolasa. . Referring Provider: Dalila Baron, [address] [place], [address]. tel:[phone] [facility] [facility], [place], [place], [id number], [place] tel:[phone] [facility] Lumbago with sciatica, left sideStiffness of unspecified joint, not elsewhere classifiedMus quang weakness (generalized) Segmental and somatic dysfunction of lumbar region 9 Muehl Carlos Alberto. [address] [facility], [address], [place], [address], [place]. tel:[phone] Referring Provider: Dalila Baron, [address] , [place], [address]. tel:[phone] [facility] [place] [address], [place], [place], [id number], [place] tel:[phone] [facility] Lumbago with sciatica, left sideStiffness of unspecified joint, not elsewhere classifiedMus quang weakness (generalized) Segmental and somatic dysfunction of lumbar region 9 Muehl Carlos Alberto. [address] [facility], [address], [place], [address], [place]. tel:[phone] Referring Provider: Dalila Baron, [address] , [place], [address]. tel:[phone] [facility] [place] [address], [place], [place], [id number], [place] tel:[phone] [facility] Lumbago with sciatica, left sideStiffness of unspecified joint, not elsewhere classifiedMus quang weakness (generalized) Segmental and somatic dysfunction of lumbar region 9 Muehl Carlos Alberto. [address] [facility], [address], [place], [address], [place]. tel:[phone] Referring Provider: Dalila Baron, [address] [place], [address]. tel:[phone] [facility], [id number], [place] tel:[phone] [facility] Pain in left legPain in left hipLumbago with sciatica, left sideMuscle weakness (generalized) Other specified disorders of muscle 9 Muehl Carlos Alberto. [address] [facility], [address], [place], [address], [place]. tel:[phone] Referring Provider: Franny Garcia, [address] [place] [address], [address]. tel:[phone] [facility] [place] [address], [place], [place], [id number], [place] tel:[phone] [facility] Pain in left legPain in left hipLumbago with sciatica, left sideMuscle weakness (generalized) Other specified disorders of muscle Sep-201 9 Rose Carcamo. [address] [facility], [address], [place], [address], [place]. tel:[phone] Referring Provider: Franny Garcia, [address] [place] [address], [address]. tel:[phone] Family History Family Member Type Diagnosis Age At Onset No Information Payers Payer name Insurance type Covered republican ID Authorhugoa gabriela(s) [facility] [id number] Social History Type Description Quantity Date Captured [...]
[2025-01-24 00:15] VITALS: PULSE 85; RESP 20; O2SAT 98
[2025-01-24] MEDS: TETANUS,DIPHTHERIA,AC PERTUSSIS ADULT (0.5 ML) BOOSTRIX IM (00:28)
[2025-01-24 00:30] VITALS: PULSE 92; RESP 19
[2025-01-24 00:45] VITALS: PULSE 86; RESP 19; O2SAT 98
[2025-01-24 02:50] VITALS: BP 137/76; PULSE 92; RESP 20; O2SAT 97
== END 2025-01-24 02:34 | disposition home or self-care (01) ==
PROVIDERS: Emergency Provider Registered Nurse Emergency
DX: S01.01XA Laceration without foreign body of scalp, initial encounter (principal); W21.220A Struck by ice hockey puck, initial encounter; Y93.22 Activity, ice hockey
CPT/HCPCS: 12001; 70450; 90471; 90715; 99284